=== PATIENT | male | born 1990 | race African-American/Black ===

== ENCOUNTER → 2023-02-23 | Emergency (ER) | payer SELFPAY ==
[~2023-02-23] MED LIST: DALBAVANCIN HCL 1,500 MG in DEXTROSE 5%-WATER - 500 ML IVPB ONE; DALBAVANCIN HCL 500 MG VIAL (RESTRICTED TO ID ONLY) IVPB ONE; MAGNESIUM SULF 50% (8.12 MEQ/2 ML-1 GM VIAL) IVPB ONE; MAGNESIUM SULFATE IN WATER 2 GM/50 ML IVPB IVPB ONE; POTASSIUM CHLORIDE TABS 20 MEQ TABLET.ER (FP) PO ONE; SODIUM CHLORIDE 0.9% 500 ML INFUS.BAG IV ONE
[2023-02-23 02:22] VITALS: BMI 23.6
[2023-02-23 02:57] LABS: HEMATOCRIT 40.9 % (35.4-49); HEMOGLOBIN 13.9 GM/dL (11.7-16.9); MCH 27.8 pg (25.7-33.7); MCHC 34.1 g/dl (32.0-35.9); MEAN CELL VOLUME 81.6 fl (80-96); MEAN PLT VOLUME 8.3 fl (7.5-11.1); PLATELET COUNT 376 10^3/uL (134-434); RBC 5.01 M/mm3 (4.00-5.60); RDW 14.5 % (11.9-15.9)
[2023-02-23 03:05] LABS: INR 1.38 (0.83-1.09); PROTHROMBIN TIME (PATIENT) 15.9 SEC (9.7-13.0)
[2023-02-23 03:22] LABS: ALBUMIN 3.2 g/dl (3.4-5.0); CALCIUM 9.4 mg/dL (8.5-10.1)
[2023-02-23 03:26] LABS: CREATININE 0.8 mg/dL (0.55-1.3)
[2023-02-23 03:27] LABS: BILIRUBIN,TOTAL 0.3 mg/dL (0.2-1); TOT PROT 7.2 g/dl (6.4-8.2)
[2023-02-23 09:36] VITALS: BP 115/71; PULSE 70; RESP 20; TEMP 98.9
== END | disposition short-term general hospital (02) ==
LOC: JER 02:14
PROC: 3E03329 Introduction of Other Anti-infective into Peripheral Vein, Percutaneous Approach (ICD-10-PCS; principal; 2023-02-23)
PROC: 3E033GC Introduction of Other Therapeutic Substance into Peripheral Vein, Percutaneous Approach (ICD-10-PCS; 2023-02-23)
DX: L02.01 Cutaneous abscess of face (principal); R22.1 Localized swelling, mass and lump, neck; Z20.822 Contact with and (suspected) exposure to COVID-19
CPT/HCPCS: 0241U-QW; 36415; 70491-TC; 80053; 83605; 85025; 85610; 87040; 99285-25; J0875; Q9967